=== PATIENT | female | born 1995 | race Caucasian/White ===

== ENCOUNTER 2021-07-11 15:00 | Inpatient (IN) | payer OTHER ==
[2021-07-11] MEDS ORDERED: DEXTROSE 5%-LACTATED RINGERS 1,000 ML IV SCH (16:15)
[2021-07-11 16:31] VITALS: BMI 29.2
[2021-07-11 18:01] LABS: BASO % 0.2 % (0-2.0); EOS % 0.6 % (0-4.5); HEMATOCRIT 34.6 % (32.4-45.2); LYMPH % 16.2 % (8-40); MCH 29.4 pg (25.7-33.7); MCHC 34.6 g/dl (32.0-36.0); MEAN PLT VOLUME 8.9 fl (7.5-11.1); PLATELET COUNT 246 10^3/uL (134-434); RBC 4.07 M/mm3 (3.60-5.2); RDW 14.2 % (11.6-15.6); WHITE BLOOD COUNT 10.2 K/mm3 (4.0-10.0)
[2021-07-11 18:04] LABS: EPI CELLS 12 /uL (0-25.1); HYALINE CASTS 1 /uL (0-3.1); PH,URINE 6.5 (5.0-8.0); URINE APPEARANCE CLEAR; URINE BACTERIA 33 /uL (0-1359); URINE BILIRUBIN NEGATIVE (NEGATIVE); URINE COLOR YELLOW; URINE GLUCOSE (UA) NEGATIVE (NEGATIVE); URINE KETONE 1+ (NEGATIVE); URINE LEUK ESTERASE NEGATIVE (NEGATIVE); URINE NITRITE NEGATIVE (NEGATIVE); URINE PROTEIN NEGATIVE (NEGATIVE); URINE RBC 338 /uL (0-23.9); URINE UROBILINOGEN 0.2 mg/dL (0.2-1.0); URINE WBC 4 /uL (0-25.8)
[2021-07-11 18:10] LABS: INR 0.95 (0.83-1.09); PROTHROMBIN TIME (PATIENT) 10.6 SEC (9.7-13.0)
[2021-07-11 18:13] LABS: ACTIVATED PTT 33.7 SECONDS (25.2-36.5)
[2021-07-11] MEDS ORDERED: PROMETHAZINE HCL 25 MG/1 ML VIAL ONE (19:15)
[2021-07-11] MEDS ORDERED: BUTORPHANOL TARTRATE 2 MG/ML VIAL ONE (19:16)
[2021-07-11] MEDS ORDERED: PROMETHAZINE HCL 25 MG/1 ML VIAL IVPUSH ONE (19:20)
[2021-07-11] MEDS ORDERED: BUTORPHANOL TARTRATE 2 MG/ML VIAL IVPUSH ONE (19:20)
[2021-07-11 19:30] LABS: BLOOD UREA NITROGEN 10.1 mg/dL (7-18); CALCIUM 9.7 mg/dL (8.5-10.1); CREATININE 0.6 mg/dL (0.55-1.3)
[2021-07-11] MEDS ORDERED: LIDOCAINE HCL 1% PRESERVATIVE FREE - 30ML VIAL ONE (21:43)
[2021-07-11] MEDS ORDERED: OXYTOCIN 20 UNITS in 0.9% NS 20 UNIT/1,000 ML INFUS.BAG IV ONE (21:44)
[2021-07-11] MEDS ORDERED: oxyCODONE HCL 5 MG TABLET PO PRN (22:48)
[2021-07-11] MEDS ORDERED: WITCH HAZEL 50% (TUCKS) 40 PAD/JAR PAD TP PRN (22:48)
[2021-07-11] MEDS ORDERED: METHYLERGONOVINE MALEATE 0.2 MG/1 ML AMP IM PRN (22:48)
[2021-07-11] MEDS ORDERED: BISACODYL 10 MG SUPP.RECT RC PRN (22:48)
[2021-07-11] MEDS ORDERED: BENZOCAINE 28 GM HEMORRHOIDAL OINTMENT TP PRN (22:48)
[2021-07-11] MEDS ORDERED: ACETAMINOPHEN 325 MG TABLET (FP) PO PRN (22:48)
[2021-07-11] MEDS ORDERED: BENZOCAINE 20% 57 GM BOTTLE TP PRN (22:48)
[2021-07-11] MEDS ORDERED: OXYTOCIN 20 UNITS in 0.9% NS 20 UNIT/1,000 ML INFUS.BAG IV SCH (23:00)
[2021-07-12] MEDS: IBUPROFEN 600 MG TABLET (FP) PO PRN ×3 (08:01→22:06)
[2021-07-12 08:27] LABS: BASO % 0.3 % (0-2.0); EOS % 0.2 % (0-4.5); HEMATOCRIT 33.3 % (32.4-45.2); HEMOGLOBIN 11.2 GM/dL (10.7-15.3); LYMPH % 12.1 % (8-40); MCH 28.6 pg (25.7-33.7); MCHC 33.5 g/dl (32.0-36.0); MEAN CELL VOLUME 85.1 fl (80-96); MEAN PLT VOLUME 8.9 fl (7.5-11.1); MONO % 6.9 % (3.8-10.2); NEUT % 80.5 % (42.8-82.8); PLATELET COUNT 239 10^3/uL (134-434); RBC 3.91 M/mm3 (3.60-5.2); RDW 14.2 % (11.6-15.6); WHITE BLOOD COUNT 11.3 K/mm3 (4.0-10.0)
[2021-07-12] MEDS: FERROUS SO4 325 MG TABLET (FP) PO SCH ×2 (09:16→16:33)
[2021-07-12] MEDS: PRENATAL VITAMINS W/ FOLIC ACID TABLET (FP) PO SCH (09:16)
[2021-07-12] MEDS ORDERED: SENNOSIDES/DOCUSATE COMBO (SENNA PLUS) TABLET (UD) PO PRN (22:00)
[2021-07-13] MEDS: IBUPROFEN 600 MG TABLET (FP) PO PRN ×2 (06:48→10:39)
[2021-07-13] MEDS: FERROUS SO4 325 MG TABLET (FP) PO SCH (10:37)
[2021-07-13] MEDS: PRENATAL VITAMINS W/ FOLIC ACID TABLET (FP) PO SCH (10:37)
[2021-07-13 11:49] VITALS: BP 119/66; PULSE 80; TEMP 98.2
== END 2021-07-13 13:50 | disposition home or self-care (01) | DRG 560 ==
LOC: JDEL 15:00 → JLDR 16:09 → J3W 07-12 00:45
PROVIDERS: ADMIT Obstetrics & Gynecology; ATTEND Obstetrics & Gynecology
PROC: 10E0XZZ Delivery of Products of Conception, External Approach (ICD-10-PCS; principal; 2021-07-11)
PROC: 0W8NXZZ Division of Female Perineum, External Approach (ICD-10-PCS; 2021-07-11)
PROC: 0KQM0ZZ Repair Perineum Muscle, Open Approach (ICD-10-PCS; 2021-07-11)
DX: O70.1 Second degree perineal laceration during delivery (principal); Z86.11 Personal history of tuberculosis; Z3A.39 39 weeks gestation of pregnancy; Z37.0 Single live birth
CPT/HCPCS: 36415; 59025; 59409; 71045-TC-FY; 80048; 81003; 85025; 85610; 85730; 86780; 86850; 86900; 86901; 87086; C9803; U0003; U0005